=== PATIENT | female | born 1955 | race Caucasian/White ===

== ENCOUNTER → 2017-12-16 10:45 | Outpatient (CLI) | payer OTHER, SELFPAY ==
--- NOTE | 2017-12-16 10:49 | BI_ITS ---
MAMMOGRAPHY - BILATERAL SCREENING REASON FOR EXAM: Female, 62 years old. Routine annual screening examination. PERTINENT HISTORY: Aunt with breast cancer. Remote left excisional breast biopsy. TECHNIQUE: Digital bilateral breast cesar (3D mammographic acquisition) in the CC and MLO projections. 2-D mediolateral oblique (MLO) and craniocaudad (CC) views of both breasts were obtained. CAD: Full Field Digital Mammography with Computer Added Detection was performed. COMPARISON: Comparison is made with prior examination dated February 19, 2017. FINDINGS: Breast Composition: There are scattered areas of fibroglandular density. There are no dominant masses or suspicious calcifications. No other significant abnormalities are identified. There has been no significant change since the prior study. BI/SCREENING MAMM (CAD), BILAT IMPRESSION: Stable bilateral screening mammogram. Yearly follow-up mammogram recommended. (A) ASSESSMENT CATEGORY: BIRADS Category 1: Negative. A letter regarding these results will be sent to the patient by the facility within 30 days. Approximately 10% of breast cancers are not detected by mammography. A normal mammogram should not delay biopsy of a clinically suspicious abnormality. [id number] Electronically Signed: Sean Briones MD at 14:05 EDT Tel [phone], Service support ,
== END ==
PROVIDERS: Family Provider Family Medicine; PCP Family Medicine; Visit Provider Family Medicine
DX: Z12.31 Encounter for screening mammogram for malignant neoplasm of breast (principal)
CPT/HCPCS: 77063; 77067

== ENCOUNTER → 2018-12-28 | Outpatient (CLI) | payer OTHER, SELFPAY ==
[2018-12-20 14:10] VITALS: BMI 31.2
--- NOTE | 2018-12-28 15:20 | BI_ITS ---
MAMMOGRAPHY - BILATERAL SCREENING 3-D TOMOSYNTHESIS REASON FOR EXAM: Female, 63 years old. Bilateral Screening 3-D tomosynthesis PERTINENT HISTORY: No significant family history. TECHNIQUE: 2-D mammograms and 3-D Tomosynthesis of the breast (s) were performed. CAD was performed. COMPARISON: December 16, 2017 FINDINGS: The breast composition is almost entirely fat. Scattered benign calcifications are seen. No dense spiculated masses or suspicious microcalcifications are identified. No architectural distortion is identified. There is no skin thickening or retraction. There has been no significant change since the prior study. BI/SCREEN MAMM (CAD) W/DIEGO BILAT IMPRESSION: No mammographic signs of malignancy. Routine yearly mammograms recommended. ASSESSMENT CATEGORY: BIRADS Category 2: Benign. A letter regarding these results will be sent to the patient by the facility within 30 days. FOLLOW UP RECOMMENDATION: Yearly follow up mammogram recommended. (A) Approximately 10% of breast cancers are not detected by mammography. A normal mammogram should not delay biopsy of a clinically suspicious abnormality. Electronically Signed: Enrique Walters MD at 15:52 EDT , Service support ,
--- NOTE | 2018-12-28 15:20 | US_ITS ---
STUDY: ULTRASOUND TRANSVAGINAL CLINICAL: Female, 63 years old. Postmenopausal bleeding. TECHNIQUE: Transvaginal COMPARISON: None. FINDINGS: Uterus is anteverted and midline, measuring 8.8 x 4.2 x 3.7 cm. The uterus is heterogenous in echotexture but without distinct myometrial masses. The endometrium measures 4 mm in thickness and is hyperechoic. There are no endometrial masses, and there is no fluid in the endometrial cavity. There are multiple nabothian cysts in the cervix. The cervix is closed. The ovaries were not visualized. There is no evidence for adnexal mass. There is no free fluid in the pelvis. US/Transvaginal Non- IMPRESSION: 1. Normal-appearing endometrium. The myometrium is somewhat heterogenous in echotexture without distinct fibroids. 2. Nabothian cyst. 3. Nonvisualization of the ovaries. Electronically Signed: Jose David Caruso DO at 16:27 EDT Tel [phone], Service support ,
== END | disposition home or self-care (01) ==
LOC: OPUS 15:17
PROVIDERS: Family Provider Family Medicine; PCP Family Medicine; Referring Provider Obstetrics & Gynecology; Visit Provider Obstetrics & Gynecology
DX: N95.0 Postmenopausal bleeding (principal); Z12.31 Encounter for screening mammogram for malignant neoplasm of breast
CPT/HCPCS: 76830; 77063; 77067

== ENCOUNTER 2019-02-13 10:09 | Emergency (ER) | payer OTHER, SELFPAY ==
[2018-12-20 14:10] VITALS: BMI 31.2
[2019-02-13 10:10] VITALS: BP 158/81; PULSE 83; RESP 18; TEMP 36.4; O2SAT 96; BMI 30.1
[2019-02-13 10:26] LABS: Bedside Glucose 311 mg/dL (70-110)
--- NOTE | 2019-02-13 10:30 | ED.VIS.GEN ---
History of Present Illness Chief Complaint: Hyperglycemia Informant: Patient Onset: Days Context: Gradual Onset Timing: Intermittent Current Severity: Moderate Maximum Severity: Moderate Narrative: The patient presents to the emergency department with elevated blood sugar. Patient is not a diabetic. She states over the past 3 or 4 days, she has been using her 's glucometer at home. She states her blood sugars been in the 300s and 400s. She does admit to increased thirst increased urination. States otherwise, she feels normal. She denies any fevers or chills. She denies a recent change of medications. Prior similar symptoms: No Recent Illness/Hospitalization: No Past Medical History - Allergies and Home Meds Allergies/Adverse Reactions: Allergies codeine Allergy (Mild, Verified 02/13/19 10:12) Other Primary Care Physician: Rama Aleman DO [Primary Care Provider] - Prior records reviewed: Yes Past Medical History: None Lives: With Family Smoking Status: Never smoker Alcohol: None Drugs: None Review of Systems General: Denies: Chills, Fever, Sweats Eyes: Denies: Visual changes - bilaterally, Diplopia ENT: Denies: Rhinorrhea, Sore throat Cardiovascular: Denies: Chest pain, Palpitations Respiratory: Denies: Dyspnea, Cough, Dyspnea on exertion Gastrointestinal: Denies: Abdominal pain, Nausea, Vomiting, Diarrhea, Melena, Hematochezia Genitourinary: Denies: Dysuria, Hematuria, Frequency Musculoskeletal: Denies: Back pain, Extremity Pain Skin: Denies: Rash, Wounds Neurological: Denies: Headache, Weakness, Numbness Physical Exam Vital Signs/Narrative: Vital Signs Temp Pulse Resp BP Pulse Ox 02/13/19 10:10 97.6 F L 83 18 158/81 H 96 Inital Vital Signs reviewed: Yes General: Well nourished, Well developed, No Acute Distress Head: Normocephalic, Atraumatic Eyes: Perrl, EOMI ENT: Moist mucous membranes, No rhinorrhea Neck: Supple, Nontender Cardiovascular: Regular rate, Regular rhythm, No murmurs Respiratory: No distress, CTA bilaterally, Chest nontender Abdomen: Soft, Nontender, Nondistended, Normal bowel sounds Back: Nontender, Normal Inspection Extremities: Nontender, No edema Skin: Normal color, No rash Neurological: Alert, Oriented x3, Cranial nerves II-XII grossly intact, Normal Strength, Normal Sensation Psychological: Normal affect, Normal Mood Diagnostic/Tx/Re-eval Abnormal Lab Results 02/13/19 02/13/19 02/13/19 10:19 10:30 10:30 WBC 5.9 RBC 5.50 H Hgb 16.3 H Hct 46.3 MCV 84.2 MCH 29.6 MCHC 35.2 RDW Std Deviation 35.8 RDW Coeff of Sapna 11.9 Plt Count 193 MPV 10.6 Immature Gran % (Auto) 0.500 Neut % (Auto) 64.5 Lymph % (Auto) 22.8 [place] % (Auto) 8.8 Eos % (Auto) 2.0 Baso % (Auto) 1.4 H Absolute Neuts (auto) 3.8 Absolute Lymphs (auto) 1.34 Nucleated RBC % 0 Sodium 136 Potassium 3.8 Chloride 106 Carbon Dioxide 24.0 Anion Gap 6 BUN 16 Creatinine 0.74 Estim Creat Clear Calc 65.20 Est GFR (MDRD) Af Amer 101 Est GFR (MDRD) Non-Af 84 BUN/Creatinine Ratio 21.5 H Glucose 292 H Hemoglobin A1c Calcium 8.5 Total Bilirubin 0.70 AST 17 ALT 36 Alkaline Phosphatase 115 Total Protein 7.3 Albumin 3.7 Globulin 3.6 Albumin/Globulin Ratio 1.0 POC Glucose 311 H 02/13/19 10:30 WBC RBC Hgb Hct MCV MCH MCHC RDW Std Deviation RDW Coeff of Sapna Plt Count MPV Immature Gran % (Auto) Neut % (Auto) Lymph % (Auto) [place] % (Auto) Eos % (Auto) Baso % (Auto) Absolute Neuts (auto) Absolute Lymphs (auto) Nucleated RBC % Sodium Potassium Chloride Carbon Dioxide Anion Gap BUN Creatinine Estim Creat Clear Calc Est GFR (MDRD) Af Amer Est GFR (MDRD) Non-Af BUN/Creatinine Ratio Glucose Hemoglobin A1c 10.3 H Calcium Total Bilirubin AST ALT Alkaline Phosphatase Total Protein Albumin Globulin Albumin/Globulin Ratio POC Glucose - Medical Decision Making The patient presents to the emergency department with elevated blood sugar. She has no known history of diabetes. IV was established. Blood sugar at the bedside was 311. Screening labs were obtained. The patient does have a blood sugar of 292 on her metabolic panel. I also obtain an A1c which was greater than 10. The patient has no anion gap. She is feeling at her baseline. I did discuss care with Dr. Sampson, the patient's primary care physician. At this point, we are going to start the patient on metformin. She is going to follow-up this week for recheck. She is comfortable with this plan of care. Impression 1. New onset diabetes with hyperglycemia ED Disposition - Plan for ED Patient: Instructions: HYPERGLYCEMIA, NEW ONSET (Diabetes Suspected) Prescriptions: Metformin HCl [Metformin ER Osmotic] 500 mg PO DAILY #30 tab.[id number] Prescription Printed Referrals: Rama Aleman DO [Primary Care Provider] -
[2019-02-13] MEDS: 0.9% Normal Saline 1,000 ML 1000 ML IV (10:38)
[2019-02-13 10:55] LABS: Absolute Lymphocyte Count 1.34 X10^3/uL (0.83-4.51); Absolute Neutrophil Count 3.8 X10^3/uL (2.0-7.7); Basophil# 0.08 X10^3/uL; Basophil% 1.4 % (0-1); Eosinophil# 0.12 X10^3/uL; Hematocrit 46.3 % (37-47); Hemoglobin 16.3 g/dL (12.0-15.0); Lymphocyte # 1.34 X10^3/ul (4.0); Lymphocyte % 22.8 % (19-41); Mean Corp Hgb Conc 35.2 g/dL (32-36); Mean Corpuscular Hgb 29.6 pg (27.0-32.0); Mean Corpuscular Volume 84.2 fL (81-99); Mean Platelet Vol. 10.6 fl (6.2-12.0); Monocyte# 0.52 X10^3/uL; Monocyte% 8.8 % (0-10); NRBC Flagged by Analyzer 0 % (0-5); Neutrophil # 3.79 X10^3/uL (2.7-7.7); Neutrophil % 64.5 % (47-70); Platelet Count 193 K/mm3 (150-450); RBC Distribution Width CV 11.9 % (11.6-14.6); RBC Distribution Width SD 35.8 fl (35.1-43.9); White Blood Count 5.9 K/mm3 (4.4-11.0)
[2019-02-13 11:06] LABS: AST(SGOT) 17 U/L (15-37); Alanine Aminotransfer ALT/SGPT 36 U/L (13-56); Albumin, Serum 3.7 g/dL (3.2-5.0); Alkaline Phosphatase 115 U/L (45-117); Anion Gap 6 (5-15); BUN 16 mg/dL (7-18); BUN/Creat Ratio 21.5 RATIO (10-20); Calcium,Total 8.5 mg/dL (8.5-10.1); Chloride 106 mmol/L (98-107); Creatinine, Serum 0.74 mg/dL (0.55-1.02); EST Glomerular Filtration Rate 84 mL/min (>60); Est Glom Filt Rate - Afr Amer 101 mL/min (>60); Globulin 3.6 g/dL (2.2-4.2); Glucose 292 mg/dL (74-106); Potassium 3.8 mmol/L (3.5-5.1); Protein, Total 7.3 g/dL (6.4-8.2); Sodium Level 136 mmol/L (136-145)
[2019-02-13 11:30] LABS: Hemoglobin A1c 10.3 % (4.2-6.3)
[2019-02-13 12:33] VITALS: RESP 18
== END 2019-02-13 12:35 | disposition home or self-care (01) ==
LOC: ED 11:01
PROVIDERS: Emergency Provider Emergency Medicine; Family Provider Family Medicine; PCP Family Medicine
DX: E11.65 Type 2 diabetes mellitus with hyperglycemia (principal)
CPT/HCPCS: 80053; 82962; 83036; 85025; 96360; 96361; 99283; J7030; A4216

== ENCOUNTER → 2020-01-29 | Outpatient (CLI) | payer OTHER, SELFPAY ==
[2019-02-13 14:29] VITALS: BMI 30.1
--- NOTE | 2020-01-29 11:26 | RAD_ITS ---
STUDY: X-RAY - CERVICAL SPINE REASON FOR EXAM: Female, 64 years old. FALL. POSTERIOR PAIN TECHNIQUE: Five view(s) of the cervical spine were obtained. COMPARISON: None FINDINGS: Normal anterior atlantoaxial articulation. Normal odontoid process. Normal cervical lordosis. Normal vertebral bodies and endplates. Mild disc space narrowing Normal visualized intervertebral neuroforamina. The soft tissue structures are unremarkable. RAD/Cerv Spine 4 or 5 Views IMPRESSION: Mild degenerative changes, no acute findings Electronically Signed: Adalberto Washington MD at 13:10 EDT , Service support ,
--- NOTE | 2020-01-29 11:26 | RAD_ITS ---
STUDY: X-RAY - RIGHT SHOULDER REASON FOR EXAM: Female, 64 years old. FALL. VERY PAINFUL SHOULDER TECHNIQUE: Three view(s) of the shoulder. COMPARISON: None. FINDINGS: Normal glenohumeral articulation. Normal acromioclavicular joint. Normal acromion. There is a nondisplaced transverse fracture through the surgical neck of the proximal humerus with extension to the greater tuberosity. The soft tissue structures are unremarkable. Normal visualized pulmonary apex. RAD/Shoulder min 2 Views IMPRESSION: Nondisplaced transverse fracture through the surgical neck of the proximal humerus with extension to the greater tuberosity. Electronically Signed: Sean Briones, at 12:37 EDT , Service support ,
--- NOTE | 2020-01-29 12:11 | RAD_ITS ---
STUDY: X-RAY - RIGHT HUMERUS REASON FOR EXAM: Female, 64 years old. FALL. SEPARATE SHOULDER IMAGES TAKEN. BEST IMAGES POSSIBLE. PT VOMITING AND PASSING OUT DURING IMAGES TECHNIQUE: Two view(s) of the humerus. COMPARISON: None. FINDINGS: On only the AP film there is a suggestion of lucency in the lateral aspect of the humeral head but this is not confirmed on the other view. There is diffuse demineralization of the humerus. There is no demonstrated fracture or osseous destructive process. There is no demonstrated soft tissue abnormality. RAD/Humerus min 2 Views IMPRESSION: Demineralization of the osseous structures, no demonstrated fracture. Possible oval lucency in the superior lateral humeral head seen only on the AP film. Electronically Signed: Adalberto Washington MD at 13:47 EDT , Service support ,
== END | disposition home or self-care (01) ==
LOC: HPRAD 11:26
PROVIDERS: PCP Family Medicine; Referring Provider Orthopaedic Surgery; Visit Provider Orthopaedic Surgery
DX: M79.601 Pain in right arm (principal); S49.91XA Unspecified injury of right shoulder and upper arm, initial encounter; S42.301A Unspecified fracture of shaft of humerus, right arm, initial encounter for closed fracture
CPT/HCPCS: 72050; 73030; 73060

== ENCOUNTER → 2020-02-12 11:32 | Outpatient (CLI) | payer OTHER, SELFPAY ==
[2020-01-29 11:59] VITALS: BMI 30.1
--- NOTE | 2020-02-12 11:33 | RAD_ITS ---
STUDY: X-RAY - RIGHT SHOULDER REASON FOR EXAM: Female, 64 years old. FRACTURE TECHNIQUE: 3 view(s) of the shoulder. COMPARISON: Comparison is made with prior examination dated 01/29/2020. FINDINGS: Normal glenohumeral articulation. Normal acromioclavicular joint. Normal acromion. Stable nondisplaced fracture of the surgical neck of the humerus with extension to the greater tuberosity. The soft tissue structures are unremarkable. Normal visualized pulmonary apex. RAD/Shoulder min 2 Views IMPRESSION: Stable examination. Electronically Signed: Sean Briones, at 12:25 EDT , Service support ,
== END ==
PROVIDERS: PCP Family Medicine; Referring Provider Orthopaedic Surgery; Visit Provider Orthopaedic Surgery
DX: S42.291A Other displaced fracture of upper end of right humerus, initial encounter for closed fracture (principal)
CPT/HCPCS: 73030

== ENCOUNTER → 2020-02-26 | Outpatient (CLI) | payer OTHER, SELFPAY ==
[2020-02-26 08:01] VITALS: BMI 30.1
--- NOTE | 2020-02-26 11:40 | RAD_ITS ---
STUDY: X-RAY - RIGHT SHOULDER REASON FOR EXAM: Female, 64 years old. FX FOLLOW UP TECHNIQUE: 3 view(s) of the shoulder. COMPARISON: 02/12/2020 FINDINGS: Normal glenohumeral articulation. Normal acromioclavicular joint. Normal acromion. Fracture of the surgical neck is indistinct, nondisplaced with mild callus formation. The soft tissue structures are unremarkable. Normal visualized pulmonary apex. RAD/Shoulder min 2 Views IMPRESSION: Mild callus formation along the fracture line. Electronically Signed: Judit Hannah MD at 4:40 EDT , Service support ,
== END | disposition home or self-care (01) ==
LOC: HPRAD 11:40
PROVIDERS: PCP Family Medicine; Referring Provider Orthopaedic Surgery; Visit Provider Orthopaedic Surgery
DX: S42.291D Other displaced fracture of upper end of right humerus, subsequent encounter for fracture with routine healing (principal)
CPT/HCPCS: 73030

== ENCOUNTER 2021-10-01 14:57 | Outpatient (CLI) | payer OTHER, SELFPAY | END 2021-10-01 23:59 | disposition home or self-care (01) | LOC: LABSPEC 14:59 | PROVIDERS: PCP Family Medicine; Visit Provider Family Medicine | DX: N39.0 Urinary tract infection, site not specified (principal) | CPT/HCPCS: 87086; 87088; 87186 ==

== ENCOUNTER → 2022-10-26 | Outpatient (CLI) | payer MEDICARE, SELFPAY ==
--- NOTE | 2022-10-26 16:08 | MRI_ITS ---
INDICATION: MS, WORSENING SYMPTOMS EXAMINATION: MRI - MR Brain WO/W Contrast TECHNIQUE: Multiplanar and multisequence MR images of the brain were obtained without and with gadolinium. IV Contrast Dosage and Agent: None. COMPARISON: None. FINDINGS: BRAIN PARENCHYMA: No MRI evidence of hemorrhage. There is mild increased signal intensity on the FLAIR and inversion recovery series within the periventricular white matter adjacent to the frontal horns bilaterally. In the left temporal occipital de santiago radiata there are multiple foci of increased signal intensity increase in numbers compared to the prior study now with for such foci visualized. These measure up to 5 mm in diameter. There are perpendicularly oriented foci of increased signal intensity lateral to the bodies of the lateral ventricles and the region of Dawsons fingers. Additional smaller scattered foci of increased signal intensity are seen within the frontal de santiago radiata and centrum semiovale measuring up to 6 mm in diameter. No evidence of significant abnormal contrast enhancement. No evidence of acute infarct. No intracranial mass or mass effect. There is preservation of the oliver/white matter interface. Normal sella turcica, pituitary gland, infundibular stalk, optic chiasm and hypothalamus. Posterior fossa structures are unremarkable. INTERNAL AUDITORY CANALS: The internal auditory canals are well visualized and patent. No mass identified. CSF SPACES: Appropriate for age. No hydrocephalus. Basal cisterns are patent. VASCULAR SYSTEM: Normal flow voids in the major intracranial circulation. CALVARIUM, SKULL BASE, PARANASAL SINUSES AND MASTOID AIR CELLS: Clear. No expansile changes. ORBITS: Both globes, extraocular muscles, optic nerves and retrobulbar fat appear unremarkable. MRI/Brain W/WO Contrast IMPRESSION: MS plaques are seen bilaterally with some mild progression in the left temporal occipital de santiago radiata. Electronically Signed: Austin Valerio MD, MYRTLE at 23:18 EDT ,
--- NOTE | 2022-10-26 16:08 | MRI_ITS ---
INDICATION: MS , WORSENING SYMPTOMS EXAMINATION: MRI - MR Spine Cervical WO/W Contrast TECHNIQUE: Multiplanar and multisequence MR images of the cervical spine were performed. IV Contrast Dosage and Agent: None. COMPARISON: None. FINDINGS: VERTEBRAE: Normal vertebral bodies and posterior elements. VERTEBRAL ALIGNMENT: Normal, including the craniocervical junction and cervicothoracic junction. No spondylolisthesis. There is preservation of the normal cervical lordosis. CERVICAL SPINAL CORD: Normal signal intensity. Mild flattening the cord anteriorly on the left at C3-4 due to pathology detailed below. C2/C3: Normal disc height and morphology. Normal spinal canal and neuroforamina. C3/C4: Moderate disc desiccation, moderate disc osteophyte eccentric to the left, mild central stenosis, bilateral facet arthropathy and uncovertebral joint disease with severe left and mild right neural foraminal encroachment. . C4/C5: Mild disc desiccation and disc osteophyte. C5/C6: Mild disc desiccation and disc osteophyte. C6/C7: Mild disc desiccation and disc osteophyte. C7/T1: Normal disc height and morphology. Normal spinal canal and neuroforamina. NECK SOFT TISSUES: No prevertebral soft tissue swelling. There is no cervical adenopathy. No evidence of significant abnormal contrast enhancement. MRI/Spine Cervical W/WO Contrast IMPRESSION: No evidence of MS involving the cervical cord. Moderate disc osteophyte C3-4 eccentric to left with mild central stenosis. Mild disc osteophyte C4-C7. Multilevel degenerative disc disease, central stenosis, facet arthropathy, uncovertebral joint disease detailed above. Electronically Signed: Austin Valerio MD, MYRTLE at 23:13 EDT ,
[2022-10-26 16:40] LABS: CREATININE FINGERSTICK < 0.9 mg/dL (0.55-1.02); EGFR FINGERSTICK > 60.0000 mL/min (>60)
== END | disposition home or self-care (01) ==
PROVIDERS: PCP Family Medicine; Referring Provider Family Medicine; Visit Provider Family Medicine
DX: G35 Multiple sclerosis (principal)
CPT/HCPCS: 70553; 72156; A9575

== ENCOUNTER → 2023-01-14 | Outpatient (CLI) | payer MEDICARE, SELFPAY ==
[2023-01-14 12:31] LABS: Absolute Lymphocyte Count 1.44 X10^3/uL (0.83-4.51); Absolute Neutrophil Count 5.5 X10^3/uL (2.0-7.7); Basophil# 0.11 X10^3/uL; Basophil% 1.4 % (0-1); Eosinophil# 0.14 X10^3/uL; Eosinophils% 1.8 % (0-5); Hematocrit 46.2 % (37-47); Hemoglobin 15.5 g/dL (12.0-15.0); Lymphocyte # 1.44 X10^3/ul (0.83-4.51); Lymphocyte % 18.2 % (19-41); Mean Corp Hgb Conc 33.5 g/dL (32-36); Mean Corpuscular Hgb 28.8 pg (27.0-32.0); Mean Corpuscular Volume 85.9 fL (81-99); Mean Platelet Vol. 10.8 fl (6.2-12.0); Monocyte# 0.65 X10^3/uL; Monocyte% 8.2 % (0-10); NRBC Flagged by Analyzer 0 % (0-5); Neutrophil # 5.51 X10^3/uL (2.7-7.7); Neutrophil % 69.8 % (47-70); Platelet Count 231 K/mm3 (150-450); RBC Distribution Width CV 12.2 % (11.6-14.6); Red Blood Count 5.38 M/mm3 (4.2-5.4); White Blood Count 7.9 K/mm3 (4.4-11.0)
[2023-01-14 12:54] LABS: ALB/GLOB Ratio 0.9 RATIO (0.9-2.4); AST(SGOT) 19 U/L (15-37); Alanine Aminotransfer ALT/SGPT 33 U/L (13-56); Albumin, Serum 3.4 g/dL (3.2-5.0); Alkaline Phosphatase 115 U/L (45-117); Anion Gap 8 (5-15); BUN 14 mg/dL (7-18); BUN/Creat Ratio 16.7 RATIO (10-20); Calcium,Total 8.9 mg/dL (8.5-10.1); Chloride 107 mmol/L (98-107); Cholesterol 210 mg/dL (200); Creatinine, Serum 0.84 mg/dL (0.55-1.02); EST Glomerular Filtration Rate 72 mL/min (>60); Est Glom Filt Rate - Afr Amer 87 mL/min (>60); Globulin 3.8 g/dL (2.2-4.2); Glucose 192 mg/dL (74-106); High Density Lipoprotein 52 mg/dL; Potassium 3.8 mmol/L (3.5-5.1); Protein, Total 7.2 g/dL (6.4-8.2); Sodium Level 138 mmol/L (136-145); Triglycerides 97 mg/dL; Very Low Density Lipoprotein 19 mg/dL (5-40)
[2023-01-14 13:33] LABS: Hemoglobin A1c 7.8 % (3.8-5.6)
== END | disposition home or self-care (01) ==
LOC: BFHLAB 10:50
PROVIDERS: PCP Family Medicine; Referring Provider Family Medicine; Visit Provider Family Medicine
DX: E11.9 Type 2 diabetes mellitus without complications (principal); Z51.81 Encounter for therapeutic drug level monitoring
CPT/HCPCS: 36415; 80053; 80061; 83036; 85025

== ENCOUNTER → 2023-02-24 | Outpatient (CLI) | payer MEDICARE, SELFPAY ==
--- NOTE | 2023-02-24 08:46 | BI_ITS ---
MAMMOGRAPHY - BILATERAL SCREENING REASON FOR EXAM: Female, 67 years old. Routine annual screening examination. PERTINENT HISTORY: Aunt with breast cancer. Remote left breast biopsy. TECHNIQUE: Digital bilateral breast diego (3D mammographic acquisition) in the CC and MLO projections. 2-D mediolateral oblique (MLO) and craniocaudad (CC) views of both breasts were obtained. CAD: Full Field Digital Mammography with Computer Added Detection was performed. COMPARISON: Screening mammogram 12/28/2018, 12/16/2017. FINDINGS: Breast Composition: There are scattered areas of fibroglandular density. There are no dominant masses or suspicious calcifications. No other significant abnormalities are identified. There has been no significant change since the prior study. BI/SCRN MAMM (CAD)W/DIEGO BILAT IMPRESSION: Stable bilateral screening mammogram. Yearly follow-up mammogram recommended. (A) ASSESSMENT CATEGORY: BIRADS Category 1: Negative. A letter regarding these results will be sent to the patient by the facility within 30 days. Approximately 10% of breast cancers are not detected by mammography. A normal mammogram should not delay biopsy of a clinically suspicious abnormality. Electronically Signed: Patrick Saavedra DO at 12:33 EDT ,
--- NOTE | 2023-02-24 08:55 | US_ITS ---
INDICATION: SCREENING AAA EXAMINATION: Ultrasound US Abdominal Aorta (retroperitoneal limited) TECHNIQUE: Buenrostro scale and color doppler imaging was obtained of the abdominal aorta. COMPARISON: None. FINDINGS: Aorta: * Proximal: Obscured by overlying bowel gas and not visualized.. * Mid: 1.5 x 2.1 cm. * Distal: 1.2 x 1.3 cm. Iliac arteries: * Right: 0.9 x 0.8 cm. * Left: 0.9 x 1.1 cm. There is no abdominal aortic or iliac aneurysm. No significant atherosclerotic disease. Normal Doppler waveforms. US/Aorta IMPRESSION: No sonographic evidence of abdominal aortic aneurysm. Electronically Signed: Patrick Saavedra DO at 9:18 EDT ,
--- NOTE | 2023-02-24 09:47 | BD_ITS ---
STUDY: DUAL ENERGY X-RAY ABSORPTIOMETRY / DXA REASON FOR EXAM: Female, 67 years old. [id number] TECHNIQUE: Bone Mineral Density (BMD) measurements of lumbar spine and bilateral hips were obtained. COMPARISON: None. FINDINGS: Lumbar Spine (L1-L4): g/cm2 (0.762) / T-score (-2.6) / Z-score (-0.7) Findings are suggestive of osteoporosis with a high fracture risk. Left Femur Total: g/cm2 (0.793) / T-score (-1.2) / Z-score (0.1) Left Femoral Neck: g/cm2 (0.727) / T-score (-1.1) / Z-score (0.5) Right Femur Total: g/cm2 (0.762) / T-score (-1.5) / Z-score (-0.2) Right Femoral Neck: g/cm2 (0.678) / T-score (-1.5) / Z-score (0.1) BD/Dexa Bone Density Study IMPRESSION: The patient is considered osteoporotic as outlined below according to World [place] Organization (WHO) criteria with a high fracture risk. Reference Information: The T-score is the number of standard deviations above or below the standard which is normal for young adults at their peak bone mineral density. The World Health Organization (WHO) interprets the T-scores as follows: Above -1 Normal bone density Between -1 and -2.5 Osteopenia Equal to / or below -2.5 Osteoporosis As a practical clinical guideline, osteopenia may be graded as follows: Mild -1 through -1.5 Moderate -1.6 through -2.0 Severe -2.1 through -2.4 The Z-score is the number of standard deviations above or below age-matched controls. A Z-score of less than -1.5 would be considered abnormal. References: 1. NIH Osteoporosis and Related Bone Diseases www osteo.org 2. International Society for Clinical Densitometry www iscd.org 3. National Osteoporosis Foundation www nof.org Electronically Signed: Sean Briones MD at 9:52 EDT ,
== END | disposition home or self-care (01) ==
LOC: OPBD 08:44
PROVIDERS: PCP Family Medicine; Referring Provider Family Medicine; Visit Provider Family Medicine
DX: Z12.31 Encounter for screening mammogram for malignant neoplasm of breast (principal); Z13.6 Encounter for screening for cardiovascular disorders; Z87.891 Personal history of nicotine dependence
CPT/HCPCS: 76775; 77063; 77067; 77080

== ENCOUNTER → 2023-02-24 | Outpatient (CLI) | payer MEDICARE, SELFPAY | END | disposition home or self-care (01) | LOC: LABSPEC 10:37 | PROVIDERS: PCP Family Medicine; Referring Provider Family Medicine; Visit Provider Family Medicine | DX: Z12.31 Encounter for screening mammogram for malignant neoplasm of breast (principal); R30.0 Dysuria; Z13.6 Encounter for screening for cardiovascular disorders; Z87.891 Personal history of nicotine dependence; Z13.820 Encounter for screening for osteoporosis; Z78.0 Asymptomatic menopausal state | CPT/HCPCS: 76775; 77063; 77067; 77080; 87086; 87088; 87186 ==